=== PATIENT | male | born 1975 | race Two or more races ===

== ENCOUNTER 2018-06-15 10:34 | Emergency (ER) | payer OTHER ==
[~2018-06-15] VITALS: Ht 170.2 cm; Wt 95.3 kg
[2018-06-15 10:34] VITALS: BP 168/88
[2018-06-15] MEDS ORDERED: HYDR-3165 PO (11:13)
[2018-06-15] MEDS ORDERED: PENI500T PO (11:13)
--- NOTE | 2018-06-15 11:13 | PHYS DOC ---
Past History Past Medical History: No Pertinent History Smoking: Non-smoker Drug Use: None Adult General Chief Complaint Chief Complaint: DENTAL PROBLEM HPI HPI Patient is a 43 year old male who presents with complaining of dental pain. Patient states she had left lower jaw and dental pain started 1 week ago and seen by his dentist 4 days ago with refilling of tooth #19. Patient states he did not have antibiotic or pain medication and taking 800 mg of ibuprofen without improvement of pain. Patient rated his pain as sharp pain with radiation to his ear and denies fever and chills, nausea and vomiting, smoking. Review of Systems Review of Systems Constitutional: Denies fever or chills [] Eyes: Denies change in visual acuity, redness, or eye pain [] HENT: Denies nasal congestion or sore throat , reports dental pain[] Respiratory: Denies cough or shortness of breath [] Cardiovascular: No additional information not addressed in HPI [] GI: Denies abdominal pain, nausea, vomiting, bloody stools or diarrhea [] : Denies dysuria or hematuria [] Musculoskeletal: Denies back pain or joint pain [] Integument: Denies rash or skin lesions [] Neurologic: Denies headache, focal weakness or sensory changes [] Endocrine: Denies polyuria or polydipsia [] All other systems were reviewed and found to be within normal limits, except as documented in this note. Physical Exam Physical Exam Constitutional: Well developed, well nourished, mild acute distress, non-toxic appearance. [] HENT: Normocephalic, atraumatic, bilateral external ears normal, oropharynx moist, #19 with tenderness and erythema of gum, no oral exudates, nose normal. [ ] Eyes: PERRLA, EOMI, conjunctiva normal, no discharge. [] Neck: Normal range of motion, no tenderness, supple, no stridor. [] Cardiovascular:Heart rate regular rhythm, no murmur [] Lungs & Thorax: Bilateral breath sounds clear to auscultation [] Skin: Warm, dry, no erythema, no rash. [] Extremities: No tenderness, no cyanosis, no clubbing, ROM intact, no edema. [] Neurologic: Alert and oriented X 3 Psychologic: Affect normal, judgement normal, mood normal. [] EKG EKG [] Radiology/Procedures Radiology/Procedures [] Course & Med Decision Making Course & Med Decision Making discharge: I've spoken with the patient and/or caregivers. I've explained the patient's condition, diagnosis and treatment plan based on information available to me at this time. I've answered the patient's and/or caregivers questions and addressed any concerns. The patient and/or caregivers have a good understanding the patient's diagnosis, condition and treatment plan as can be expected at this point. Vital signs have been stabilized. The patient's condition is stable for discharge from the emergency department. The patient will pursue further outpatient evaluation with her primary care provider or other designated consulting physician as outlined in the discharge instructions. Patient and/or caregivers are agreeable to this plan of care and follow-up instructions have been explained in detail. The patient and/or caregivers have received these instructions in written format and expressed understanding of these discharge instructions. The patient and her caregivers are aware that if any significant change in condition or worsening of symptoms should prompt him to immediately return to this of the closest emergency department. If an emergent department is not readily available I would encourage him to call 911. Maria R Disclaimer Dragon Disclaimer This electronic medical record was generated, in whole or in part, using a voice recognition dictation system. Departure Departure: Impression: Primary Impression: Dentalgia Additional Impression: Dental abscess Disposition: HOME, SELF-CARE (@1108) Condition: IMPROVED Referrals: DEBBI MOON PA-C (PCP) Patient Instructions: Dental Abscess Additional Instructions: Drink plenty of liquids Follow-up with your dentist in 2 or 3 days Return to ER if not getting better Scripts Penicillin V Potassium (PENICILLIN V POTASSIUM) 500 Mg Tablet 1 TAB PO QID for Infection, #40 TAB Prov: ANDREA NG MD 06/15/18 Hydrocodone Bit/Acetaminophen (NORCO 5-325 TABLET) 1 Each Tablet 1 TAB PO PRN Q6HRS PRN for PAIN, #14 TAB 0 Refills Prov: ANDREA NG MD 06/15/18 Problem Qualifiers ANDREA NG MD Jun 15, 2018 11:13
== END 2018-06-15 11:26 | disposition home or self-care (01) ==
LOC: ER 10:34
DX: K04.7 Periapical abscess without sinus (principal)
CPT/HCPCS: 99283